=== PATIENT | male | born 1960 | race Caucasian/White ===

== ENCOUNTER 2017-07-09 14:47 | Emergency (ER) | payer BC ==
--- NOTE | 2017-07-09 15:41 | EDM.PDOC ---
ED HPI GENERAL MEDICAL PROBLEM - General Chief Complaint: Gastrointestinal Problem Stated Complaint: SENT FROM [facility] Time Seen by Provider: 07/09/17 15:02 Source of Information: Reports: Patient, RN Notes Reviewed - History of Present Illness INITIAL COMMENTS - FREE TEXT/NARRATIVE: 57-year-old male has been sent over from [facility] with concern for possible pneumonia. He presented to the clinic with cough, chills, possible low- grade fever that started yesterday. He apparently had a CBC, CMP, EKG. EKG showed slight sinus rhythm irregularity. Chemistries apparently showed a sodium of 130. He was felt to have an orthostatic blood pressure drop although numbers given show lying blood pressure 114/68, standing 99/73. Patient states he did not have a chest x-ray done at the clinic and also did not have an influenza screen. He did not get an influenza shot this year, does not believe in that. 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 He also does smoke. He states his cough has been non productive. Has slight nasal and sinus congestion. Denies sore throat. He is having no chest pain or difficulty breathing. He has been eating and drinking satisfactorily. - Related Data Allergies Allergy/AdvReac Type Severity Reaction Status Date / Time No Known Allergies Allergy Verified 07/09/17 15:00 Home Meds: Home Meds Doxycycline [Vibramycin] 100 mg PO Q12HR #20 tablet 07/09/17 [Rx] Past Medical History HEENT History: Reports: Impaired Vision Respiratory History: Reports: Pneumonia, Recurrent - Past Surgical History GI Surgical History: Reports: Hernia Repair/Other Musculoskeletal Surgical History: Reports: Other (See Below) Other Musculoskeletal Surgeries/Procedures:: Arm surgery Social & Family History - Family History Family Medical History: Noncontributory - Tobacco Use Smoking Status *Q: Current Every Day Smoker Years of Tobacco use: 30 Packs/Tins Daily: 0.7 - Recreational Drug Use Recreational Drug Use: No ED ROS GENERAL - Review of Systems Review Of Systems: See Below Constitutional: Reports: Fever, Chills (Possible low-grade) HEENT: Reports: Rhinitis (Slight). Denies: Sinus Problem, Throat Pain Respiratory: Denies: Shortness of Breath, Wheezing, Pleuritic Chest Pain Cardiovascular: Denies: Chest Pain GI/Abdominal: Denies: Abdominal Pain, Nausea, Vomiting Musculoskeletal: Reports: No Symptoms Skin: Reports: No Symptoms Neurological: Denies: Dizziness, Headache ED EXAM, GENERAL - Physical Exam Exam: See Below General Appearance: Alert, No Apparent Distress Throat/Mouth: Normal Inspection, Normal Oropharynx Head: Atraumatic. No: Facial Swelling Neck: Supple, Full Range of Motion Respiratory/Chest: No Respiratory Distress, Lungs Clear, Normal Breath Sounds. No: Rhonchi, Wheezing Cardiovascular: Regular Rate, Rhythm Extremities: Normal Inspection. No: Pedal Edema, Leg Pain Neurological: Alert, Oriented, No Motor/Sensory Deficits Skin Exam: Warm, Dry, Normal Color EKG INTERPRETATION EKG Date: 07/09/17 Rhythm: NSR Rate (Beats/Min): 91 [place]: RAD-Right [place] Deviation P-Wave: Present QRS: Normal ST-T: Normal Course - Vital Signs Last Recorded V/S: Last Vital Signs Temp 97.4 F 07/09/17 14:55 Pulse 95 07/09/17 14:55 Resp 20 07/09/17 14:55 BP 116/94 H 07/09/17 14:55 Pulse Ox 100 07/09/17 14:55 Orthostatic Blood Pressure [ 102/85 Standing] Orthostatic Blood Pressure [ 119/88 Sitting] Orthostatic Blood Pressure [ 127/80 Supine] - Orders/Labs/Meds Orders: Active Orders 24 hr Category Date Time Status EKG 12 Lead [EKG Documentation Completion] [RC] STAT Care 07/09/17 15:22 Active Peripheral IV Care [RC] . DIRECTED Care 07/09/17 15:56 Active CXR [Chest 2V] [CR] Stat Exams 07/09/17 15:22 Taken Peripheral IV Insertion Adult [OM.PC] Stat Oth 07/09/17 15:56 Ordered Meds: Medications Discontinued Medications Generic Name Dose Route Start Last Admin Trade Name Freq PRN Reason Stop Dose Admin Sodium Chloride 1,000 mls @ 999 mls/hr 07/09/17 16:00 07/09/17 16:02 Normal Saline IV 999 mls/hr ONETIME CODY Administration Sodium Chloride 10 ml 07/09/17 15:56 07/09/17 16:02 Saline Flush FLUSH 10 ml ASDIRECTED PRN Administration Keep Vein Open - Re-Assessments/Exams Free Text/Narrative Re-Assessment/Exam: 07/09/17 16:17 Patient did get somewhat dizzy and lightheaded standing over in radiology getting his chest x-ray. Orthosis were checked at that time or short time later and he did have somewhat of an orthostatic drop. Or give him a liter of normal saline. Chest x-ray looks clear, no evidence for pneumonia. Influenza screen negative. I have reviewed the CBC from the clinic, white blood count was 4700 relatively normal-looking differential. They did not send over his chemistries. I called over to check on that the clinic was then closed. He has a viral upper respiratory infection. We'll plan to give the full liter normal saline and it is expected he will be stable to go home at that time. 07/09/17 17:20. Feels much better, discharge instructions as documented Departure - Departure Time of Disposition: 17:21 Disposition: Home, Self-Care 01 Condition: Fair Clinical Impression: Bronchitis, Hyponatremia Upper respiratory infection Qualifiers: URI type: unspecified viral URI Qualified Code(s): J06.9 - Acute upper respiratory infection, unspecified - Discharge Information Prescriptions: Doxycycline [Vibramycin] 100 mg PO Q12HR #20 tablet Instructions: Hyponatremia, [id number], Acute Bronchitis, [id number], Upper Respiratory Infection, Adult, [id number] Referrals: PCP,None [Primary Care Provider] - Forms: ED Department Discharge Additional Instructions: Rest, drink plenty of fluids, Tylenol if needed for discomfort or high fever, doxycycline antibiotic 100 mg twice daily for 10 days, try stop smoking, your sodium was somewhat low at the clinic, it would be helpful to drink some Powerade in the neighborhood of one half bottle daily for the next few days and even to add a little bit of salt with your food, follow-up clinic if not much better within 4-5 days, return to ED if symptoms worsening in any way. - My Orders Last 24 Hours: My Active Orders 07/09/17 15:22 EKG 12 Lead [EKG Documentation Completion] [RC] STAT CXR [Chest 2V] [CR] Stat 07/09/17 15:56 Peripheral IV Care [RC] . DIRECTED Peripheral IV Insertion Adult [OM.PC] Stat - Assessment/Plan Last 24 Hours: My Active Orders 07/09/17 15:22 EKG 12 Lead [EKG Documentation Completion] [RC] STAT CXR [Chest 2V] [CR] Stat 07/09/17 15:56 Peripheral IV Care [RC] . DIRECTED Peripheral IV Insertion Adult [OM.PC] Stat
[2017-07-09] MEDS ORDERED: Sodium Chloride 0.9% 10 ML Syringe FLUSH PRN (15:56)
[2017-07-09] MEDS ORDERED: Sodium Chloride 0.9% 1,000 ML IV SCH (16:00)
--- NOTE | 2017-07-10 09:22 | CR ---
Chest: Two views of the chest were obtained. Comparison: No prior chest x-ray. Heart size is normal. Slightly prominent left-sided paratracheal soft tissues are noted. Lungs are clear but hyperinflated. Bony structures show slight degenerative change within the lower thoracic spine as well as mild scoliosis being seen within the spine. Impression: 1. Slightly prominent soft tissues within the left paratracheal region. Chest CT with contrast recommended to exclude the possibility of adenopathy. 2. Emphysematous change with other incidental findings. Diagnostic code #9
== END 2017-07-09 17:35 | disposition home or self-care (01) ==
LOC: JD.ED 14:47
DX: J40 Bronchitis, not specified as acute or chronic (principal); J06.9 Acute upper respiratory infection, unspecified; E87.1 Hypo-osmolality and hyponatremia; F17.210 Nicotine dependence, cigarettes, uncomplicated
CPT/HCPCS: 71020; 87804; 93005; 96360; 99284; J7040; J7050; 93010; 99283-25

== ENCOUNTER 2017-07-29 23:56 | Emergency (ER) | payer BC ==
[2017-07-30] MEDS: Sodium Chloride 0.9% 1,000 ML IV SCH ×2 (00:19→01:06)
[2017-07-30] MEDS ORDERED: Sodium Chloride 0.9% 1,000 ML ONE (00:21)
--- NOTE | 2017-07-30 01:00 | EDM.PDOC ---
ED HPI GENERAL MEDICAL PROBLEM - General Chief Complaint: Neuro Symptoms/Deficits Stated Complaint: SYNCOPE Time Seen by Provider: 07/30/17 00:00 Source of Information: Reports: Patient, Family History Limitations: Reports: No Limitations - History of Present Illness INITIAL COMMENTS - FREE TEXT/NARRATIVE: Is 57-year-old male. He was with family this evening when he apparently passed out and hit the floor. He is noted to have some abrasions to his forehead and his nose and his left cheek. The family member that came with him indicated that she had been walking towards the kitchen and away from him and not watching him and she heard a thud on the floor and turned around and he had passed out on the floor. They went to him and he was for a few seconds confused but then he started answering questions appropriately. She states that when they tried to get him up he was using his arms and legs appropriately did not have any facial drooping and he was answering questions appropriately. Due to his syncopal episode however they brought him to the ER for evaluation. The patient cannot tell me whether or not tried to stand up before he passed out or if he was sitting when he passed out. He doesn't really remember much about the syncopal episode. He does apparently drink alcohol daily and he tells the nurse for beers. The patient was here at the end of June for orthostatic vital signs requiring fluids and he was found to have an upper respiratory infection at that time. The patient denies any cough or congestion. He denies any chest pain. Head Pain Score (Numeric/FACES): 10 - Related Data Allergies Allergy/AdvReac Type Severity Reaction Status Date / Time No Known Allergies Allergy Verified 07/30/17 00:00 Home Meds: Home Meds . [No Known Home Meds] 07/30/17 [History] Past Medical History HEENT History: Reports: Impaired Vision Respiratory History: Reports: Pneumonia, Recurrent - Past Surgical History GI Surgical History: Reports: Hernia Repair/Other Musculoskeletal Surgical History: Reports: Other (See Below) Other Musculoskeletal Surgeries/Procedures:: Arm surgery Social & Family History - Family History Family Medical History: Noncontributory - Tobacco Use Smoking Status *Q: Current Every Day Smoker Years of Tobacco use: 40 Packs/Tins Daily: 0.5 - Alcohol Use Days Per Week of Alcohol Use: 7 Number of Drinks Per Day: 4 Total Drinks Per Week: 28 - Recreational Drug Use Recreational Drug Use: No ED ROS GENERAL - Review of Systems Review Of Systems: See Below Constitutional: Denies: Fever, Chills HEENT: Reports: Other (As per history of present illness) Respiratory: Denies: Shortness of Breath, Cough Cardiovascular: Reports: Lightheadedness. Denies: Chest Pain Endocrine: Reports: No Symptoms GI/Abdominal: Reports: No Symptoms : Reports: No Symptoms Musculoskeletal: Reports: No Symptoms Skin: Reports: Other (Abrasions to the face otherwise negative) Neurological: Reports: Syncope Psychiatric: Reports: No Symptoms Hematologic/Lymphatic: Reports: No Symptoms ED EXAM, NEURO - Physical Exam Exam: See Below Exam Limited By: No Limitations General Appearance: Alert, No Apparent Distress, Lethargic Eye Exam: Bilateral Eye: Normal Inspection Ears: Normal External Exam, Normal Canal, Normal TMs Nose: Other (He has no abrasion over the top of his nose noted) Throat/Mouth: Normal Inspection, Other (Mucous membranes are dry) Head Exam: Other (He has abrasions to his left forehead and left cheek noted) Neck: Supple, Other (He denies any cervical tenderness) Respiratory/Chest: No Respiratory Distress, Lungs Clear, Normal Breath Sounds Cardiovascular: Regular Rate, Rhythm, No Murmur GI/Abdominal: Soft, Non-Tender Neurological: Alert, Normal Mood/Affect Back Exam: Full Range of Motion Extremities: Normal Inspection, Normal Range of Motion Psychiatric: Flat Affect Skin Exam: Warm, Dry EKG INTERPRETATION EKG Date: 07/30/17 Time: 00:05 Rhythm: NSR EKG Interpretation Comments: There are no acute ST or T-wave changes noted, there is poor R-wave progression in the anterior leads but there is no ischemia changes noted. The interpretation suggested ST elevation in inferior leads but I disagree at this time. Course - Vital Signs Last Recorded V/S: Last Vital Signs Temp 94.9 F L 07/30/17 00:01 Pulse 67 07/30/17 00:01 Resp 23 H 07/30/17 00:01 BP 90/57 L 07/30/17 00:01 Pulse Ox Orthostatic Blood Pressure [ 124/78 Standing] Orthostatic Blood Pressure [ 146/89 Sitting] Orthostatic Blood Pressure [ 130/79 Supine] - Orders/Labs/Meds Orders: Active Orders 24 hr Category Date Time Status EKG 12 Lead [EKG Documentation Completion] [RC] STAT Care 07/30/17 00:17 Active Orthostatic Vital Signs [RC] ASDIRECTED Care 07/30/17 02:35 Active CXR [Chest 1V Frontal] [CR] Stat Exams 07/30/17 00:17 Taken Head wo Cont [CT] Stat Exams 07/30/17 00:27 Taken Sodium Chloride 0.9% [Normal Saline] 1,000 ml Med 07/30/17 00:30 Active IV ASDIRECTED Sodium Chloride 0.9% [Normal Saline] 1,000 ml Med 07/30/17 01:15 Active IV ASDIRECTED Medication Orders Sodium Chloride (Normal Saline) 1,000 mls @ 1,000 mls/hr IV ASDIRECTED CODY Last Admin: 07/30/17 01:06 Dose: 1,000 mls/hr Infusion: 07/30/17 01:06 Dose: 1,000 mls/hr Admin: 07/30/17 00:19 Dose: 1,000 mls/hr Sodium Chloride (Normal Saline) 1,000 mls @ 1,000 mls/hr IV ASDIRECTED CODY Last Admin: 07/30/17 02:32 Dose: 1,000 mls/hr Labs: Laboratory Tests 07/30/17 07/30/17 07/30/17 Range/Units 00:03 00:03 00:06 WBC 7.35 (4.23-9.07) K/mm3 RBC 4.49 L (4.63-6.08) M/mm3 Hgb 15.1 (13.7-17.5) gm/L Hct 42.8 (40.1-51.0) % MCV 95.3 H (79.0-92.2) fl MCH 33.6 H (25.7-32.2) pg MCHC 35.3 (32.2-35.5) g/dl RDW Std Deviation 45.2 H (35.1-43.9) fL Plt Count 304 (163-337) K/mm3 MPV 8.4 L (9.4-12.3) fl Neut % (Auto) 25.4 L (34.0-67.9) % Lymph % (Auto) 57.8 H (21.8-53.1) % Lander % (Auto) 12.5 H (5.3-12.2) % Eos % (Auto) 3.5 (0.8-7.0) Baso % (Auto) 0.5 (0.1-1.2) % Neut # (Auto) 1.86 (1.78-5.38) K/mm3 Lymph # (Auto) 4.25 H (1.32-3.57) K/mm3 Lander # (Auto) 0.92 H (0.30-0.82) K/mm3 Eos # (Auto) 0.26 (0.04-0.54) K/mm3 Baso # (Auto) 0.04 (0.01-0.08) K/mm3 Sodium 129 L (136-145) mEq/L Potassium 3.7 (3.5-5.1) mEq/L Chloride 94 L (98-107) mEq/L Carbon Dioxide 21 (21-32) mEq/L Anion Gap 17.7 H (5-15) BUN 8 (7-18) mg/dL Creatinine 1.1 (0.7-1.3) mg/dL Est Cr Clr Drug Dosing 62.54 mL/min Estimated GFR (MDRD) > 60 (>60) mL/min BUN/Creatinine Ratio 7.3 L (14-18) Glucose 93 (74-106) mg/dL POC Glucose 86 (70-105) mg/dL Lactic Acid (0.4-2.0) mmol/L Calcium 8.6 (8.5-10.1) mg/dL Total Bilirubin 0.4 (0.2-1.0) mg/dL AST 43 H (15-37) U/L ALT 30 (16-63) U/L Alkaline Phosphatase 80 (46-116) U/L Troponin I < 0.017 (0.00-0.056) ng/mL Total Protein 7.3 (6.4-8.2) g/dl Albumin 3.7 (3.4-5.0) g/dl Globulin 3.6 gm/dL Albumin/Globulin Ratio 1.0 (1-2) Lipase 180 (73-393) U/L Urine Color (Yellow) Urine Appearance (Clear) Urine pH (5.0-8.0) Ur Specific [place] (1.005-1.030) Urine Protein (Negative) Urine Glucose (UA) (Negative) Urine Ketones (Negative) Urine Occult Blood (Negative) Urine Nitrite (Negative) Urine Bilirubin (Negative) Urine Urobilinogen (0.2-1.0) Ur Leukocyte Esterase (Negative) Urine RBC (0-5) /hpf Urine WBC (0-5) /hpf Ur Epithelial Cells (0-5) /hpf Urine Bacteria (FEW) /hpf Hyaline Casts (0-5) /lpf Urine Mucus (FEW) /hpf Urine Opiates Screen (NEGATIVE) Ur Buprenorphine Scrn (NEGATIVE) Ur Oxycodone Screen (NEGATIVE) Urine Methadone Screen (NEGATIVE) Ur Propoxyphene Screen (NEGATIVE) Ur Barbiturates Screen (NEGATIVE) Ur Tricyclics Screen (NEGATIVE) Ur Phencyclidine Scrn (NEGATIVE) Ur Amphetamine Screen (NEGATIVE) U Methamphetamines Scrn (NEGATIVE) U Benzodiazepines Scrn (NEGATIVE) U Cocaine Metab Screen (NEGATIVE) U Marijuana (THC) Screen (NEGATIVE) Ethyl Alcohol 0.07 (0.00) gm% 07/30/17 07/30/17 07/30/17 Range/Units 00:34 03:03 03:03 WBC (4.23-9.07) K/mm3 RBC (4.63-6.08) M/mm3 Hgb (13.7-17.5) gm/L Hct (40.1-51.0) % MCV (79.0-92.2) fl MCH (25.7-32.2) pg MCHC (32.2-35.5) g/dl RDW Std Deviation (35.1-43.9) fL Plt Count (163-337) K/mm3 MPV (9.4-12.3) fl Neut % (Auto) (34.0-67.9) % Lymph % (Auto) (21.8-53.1) % Lander % (Auto) (5.3-12.2) % Eos % (Auto) (0.8-7.0) Baso % (Auto) (0.1-1.2) % Neut # (Auto) (1.78-5.38) K/mm3 Lymph # (Auto) (1.32-3.57) K/mm3 [place]ander # (Auto) (0.30-0.82) K/mm3 Eos # (Auto) (0.04-0.54) K/mm3 Baso # (Auto) (0.01-0.08) K/mm3 Sodium (136-145) mEq/L Potassium (3.5-5.1) mEq/L Chloride (98-107) mEq/L Carbon Dioxide (21-32) mEq/L Anion Gap (5-15) BUN (7-18) mg/dL Creatinine (0.7-1.3) mg/dL Est Cr Clr Drug Dosing mL/min Estimated GFR (MDRD) (>60) mL/min BUN/Creatinine Ratio (14-18) Glucose (74-106) mg/dL POC Glucose (70-105) mg/dL Lactic Acid 2.5 H (0.4-2.0) mmol/L Calcium (8.5-10.1) mg/dL Total Bilirubin (0.2-1.0) mg/dL AST (15-37) U/L ALT (16-63) U/L Alkaline Phosphatase (46-116) U/L Troponin I (0.00-0.056) ng/mL Total Protein (6.4-8.2) g/dl Albumin (3.4-5.0) g/dl Globulin gm/dL Albumin/Globulin Ratio (1-2) Lipase (73-393) U/L Urine Color Yellow (Yellow) Urine Appearance Clear (Clear) Urine pH 6.5 (5.0-8.0) Ur Specific [place] 1.015 (1.005-1.030) Urine Protein Negative (Negative) Urine Glucose (UA) Negative (Negative) Urine Ketones Negative (Negative) Urine Occult Blood Negative (Negative) Urine Nitrite Negative (Negative) Urine Bilirubin Negative (Negative) Urine Urobilinogen 0.2 (0.2-1.0) Ur Leukocyte Esterase Negative (Negative) Urine RBC 0-5 (0-5) /hpf Urine WBC 0-5 (0-5) /hpf Ur Epithelial Cells Not seen (0-5) /hpf Urine Bacteria Not seen (FEW) /hpf Hyaline Casts 0-5 (0-5) /lpf Urine Mucus Not seen (FEW) /hpf Urine Opiates Screen Negative (NEGATIVE) Ur Buprenorphine Scrn Negative (NEGATIVE) Ur Oxycodone Screen Negative (NEGATIVE) Urine Methadone Screen Negative (NEGATIVE) Ur Propoxyphene Screen Negative (NEGATIVE) Ur Barbiturates Screen Negative (NEGATIVE) Ur Tricyclics Screen Negative (NEGATIVE) Ur Phencyclidine Scrn Negative (NEGATIVE) Ur Amphetamine Screen Negative (NEGATIVE) U Methamphetamines Scrn Negative (NEGATIVE) U Benzodiazepines Scrn Negative (NEGATIVE) U Cocaine Metab Screen Negative (NEGATIVE) U Marijuana (THC) Screen Presumptive positive H (NEGATIVE) Ethyl Alcohol (0.00) gm% Meds: Medications Generic Name Dose Route Start Last Admin Trade Name Freq PRN Reason Stop Dose Admin Sodium Chloride 1,000 mls @ 1,000 mls/hr 07/30/17 00:30 07/30/17 01:06 Normal Saline IV 1,000 mls/hr ASDIRECTED CODY Administration Sodium Chloride 1,000 mls @ 1,000 mls/hr 07/30/17 01:15 07/30/17 02:32 Normal Saline IV 1,000 mls/hr ASDIRECTED CODY Administration Discontinued Medications Generic Name Dose Route Start Last Admin Trade Name Freq PRN Reason Stop Dose Admin Sodium Chloride Confirm 07/30/17 00:21 07/30/17 00:50 Normal Saline Administered 07/30/17 00:22 Not Given Dose 1,000 mls @ as directed .ROUTE .STK-MED ONE - Re-Assessments/Exams Free Text/Narrative Re-Assessment/Exam: 07/30/17 01:04 When we attempted to do orthostatic vital signs the patient's blood pressure while lying down was 90/76, when we sat him up it dropped down to 81/48 and then we stood him up he got rather woozy and couldn't stand up and we waited him back down his blood pressure dropped to 61/39. During this time he was not complaining of chest pain he was able to move all 4 extremities and there is no facial drooping. 07/30/17 01:22 Chest x-ray does not show any acute infiltrates. 07/30/17 01:29 CT scan does not show any acute findings. 07/30/17 02:19 I spoke to the patient as well as the family regarding the blood results and the sodium of 129. Also told him about the chest x-ray and CT scan. I talked to him about his blood pressure dropping so low in the ER we stood him up and he was rather surprised. He seems to be doing well now he is alert he is talking and states he is feeling much better. 07/30/17 03:06 After 2 L of fluids he is feeling much better we did repeat orthostatic vital signs. Lying down blood pressure 130/79 with a pulse of 81, sitting was 146/89 pulse of 87 standing was 124/78 pulse of 95. He did not experience any lightheadedness while standing. Due to his heart rate still elevating we'll give him another liter of fluids before we let him go. 07/30/17 03:39 I spoke to the family regarding the rest of the lab results. The patient is feeling much better and he wishes to go home. We are able to get 3 L and the patient before he left and his blood pressure was stable and he felt okay when he stood up. Departure - Departure Time of Disposition: 03:40 Disposition: Home, Self-Care 01 Condition: Fair Clinical Impression: Dehydration, Orthostatic hypotension, Hyponatremia, Alcohol ingestion Syncope Qualifiers: Syncope type: vasovagal syncope Qualified Code(s): R55 - Syncope and collapse Facial abrasion Qualifiers: Encounter type: initial encounter Qualified Code(s): S00.81XA - Abrasion of other part of head, initial encounter - Discharge Information Referrals: PCP,None [Primary Care Provider] - Forms: ED Department Discharge Additional Instructions: Over the weekend and rest and sleep as much as possible and drink lots of good fluids and water, use some triple antibiotic ointment on the abrasions to the face and just watch for infection, recheck with your family doctor this coming week, if there is worsening of your symptoms return to the ER - My Orders Last 24 Hours: My Active Orders 07/30/17 00:17 EKG 12 Lead [EKG Documentation Completion] [RC] STAT CXR [Chest 1V Frontal] [CR] Stat 07/30/17 00:27 Head wo Cont [CT] Stat 07/30/17 00:30 Sodium Chloride 0.9% [Normal Saline] 1,000 ml IV ASDIRECTED 07/30/17 01:15 Sodium Chloride 0.9% [Normal Saline] 1,000 ml IV ASDIRECTED 07/30/17 02:35 Orthostatic Vital Signs [RC] ASDIRECTED - Assessment/Plan Last 24 Hours: My Active Orders 07/30/17 00:17 EKG 12 Lead [EKG Documentation Completion] [RC] STAT CXR [Chest 1V Frontal] [CR] Stat 07/30/17 00:27 Head wo Cont [CT] Stat 07/30/17 00:30 Sodium Chloride 0.9% [Normal Saline] 1,000 ml IV ASDIRECTED 07/30/17 01:15 Sodium Chloride 0.9% [Normal Saline] 1,000 ml IV ASDIRECTED 07/30/17 02:35 Orthostatic Vital Signs [RC] ASDIRECTED
[2017-07-30] MEDS ORDERED: Sodium Chloride 0.9% 1,000 ML IV SCH (01:15)
--- NOTE | 2017-07-30 16:00 | CR ---
Chest: Portable view of the chest was obtained. Comparison: Prior chest x-ray of 07/09/17. Heart size is normal. Tortuous thoracic aorta is seen. Lungs are clear. Bony structures are grossly intact. Impression: 1. Nothing acute is identified on frontal chest x-ray. Diagnostic code #2
--- NOTE | 2017-07-30 16:00 | CT ---
Head CT Technique: Multiple axial sections through the brain were obtained. Intravenous contrast was not utilized. Comparison: No previous intracranial imaging. Findings: Ventricles along with basal cisterns and sulci over the convexities are mildly prominent. No abnormal parenchymal densities are seen. No evidence of intracranial hemorrhage. No midline shift or mass effect is seen. Bone window settings were reviewed which show no acute calvarial abnormality. Mucosal thickening is noted within the right maxillary sinus and within the ethmoid sinuses which is likely chronic. Impression: 1. No acute intracranial abnormality is identified. Other findings which are felt to be incidental as noted above. Diagnostic code #2 I agree with preliminary report issued by [facility] ([facility] preliminary report dictated on 07/30/17, 2:26 AM Central Time)
== END 2017-07-30 03:58 | disposition home or self-care (01) ==
LOC: JD.ED 23:56
DX: I95.1 Orthostatic hypotension (principal); S00.81XA Abrasion of other part of head, initial encounter; S00.31XA Abrasion of nose, initial encounter; T51.91XA Toxic effect of unspecified alcohol, accidental (unintentional), initial encounter; E87.1 Hypo-osmolality and hyponatremia; E86.0 Dehydration; F17.210 Nicotine dependence, cigarettes, uncomplicated; W01.198A Fall on same level from slipping, tripping and stumbling with subsequent striking against other object, initial encounter
CPT/HCPCS: 36415; 70450; 71045; 80053; 80306; 81001; 82962; 83605; 83690; 84484; 85025; 93005; 96360; 96361; 99285; G0480; J7040; 99283

== ENCOUNTER 2023-12-27 17:48 | Emergency (ER) | payer BC ==
[2023-12-28] MEDS: diphenhydrAMINE 12.5 MG, Alum Hydrox/Mag Hydrox/Simeth 30 ML, Lidocaine 2% 15 ML PO ONE (00:40)
== END 2023-12-28 00:50 | disposition home or self-care (01) ==
LOC: JD.ED 17:48
DX: R09.A2 Foreign body sensation, throat (principal)
CPT/HCPCS: 70360; 70360-26; 99282; 99283; A9270-GY

== ENCOUNTER 2024-01-01 12:15 | Emergency (ER) | payer BC ==
[2024-01-01 13:43] LABS: BASOPHILS PERCENT AUTO 0.4 % (0.0-1.0); EOSINOPHILS ABSOLUTE AUTO 0.1 K/mm3 (0.0-0.4); HEMATOCRIT 45.5 % (42.0-52.0); HEMOGLOBIN 16.6 gm/dl (14.0-18.0); IMMATURE GRAN ABSOLUTE AUTO 0.03 K/mm3 (0.00-0.05); IMMATURE GRAN PERCENT AUTO 0.5 % (0.0-0.4); LYMPHOCYTES ABSOLUTE AUTO 1.8 K/mm3 (1.0-4.8); LYMPHOCYTES PERCENT AUTO 31.4 % (24.0-44.0); MEAN CORPUSCULAR HEMOGLOBIN 35.2 pg (28.0-32.0); MEAN CORPUSCULAR HGB CONC 36.5 g/dl (32.0-36.0); MEAN CORPUSCULAR VOLUME 96.6 fl (83.0-99.0); MEAN PLATELET VOLUME 8.7 fl (9.4-12.4); MONOCYTES ABSOLUTE AUTO 0.7 K/mm3 (0.0-0.8); MONOCYTES PERCENT AUTO 12.9 % (0.0-8.0); NEUTROPHILS PERCENT AUTO 52.8 % (41.0-71.0); PLATELET COUNT,PLT 191 K/mm3 (150-400); RED BLOOD CELL COUNT 4.71 M/mm3 (4.52-5.90); WHITE BLOOD CELL COUNT,WBC 5.64 K/mm3 (3.9-11.3)
[2024-01-01 14:10] LABS: ALANINE AMINOTRANSFERASE,ALT 24 U/L (16-63); ALBUMIN 3.4 g/dl (3.4-5.0); ALKALINE PHOSPHATASE 84 U/L (46-116); ANION GAP 12.8 (5-15); ASPARTATE AMNIOTRANSFERASE,AST 34 U/L (15-37); BILIRUBIN TOTAL 0.7 mg/dL (0.2-1.0); BLOOD UREA NITROGEN,BUN 7 mg/dL (7-18); CARBON DIOXIDE,CO2 26 mEq/L (21-32); CHLORIDE,CL 96 mEq/L (98-107); EST CRCL DRUG DOSING (CG) 57.89 mL/min; ESTIMATED GFR 85 mL/min (>60); GLUCOSE RANDOM 95 mg/dL (70-99); POTASSIUM,K 4.8 mEq/L (3.5-5.1); PROTEIN TOTAL,TP 6.8 g/dl (6.4-8.2); SODIUM,NA 130 mEq/L (136-145)
[2024-01-01 14:16] LABS: TROPONIN I HIGH SENSITIVITY < 4 pg/mL (<=76)
== END 2024-01-01 15:48 | disposition home or self-care (01) ==
LOC: JD.ED 12:15
DX: R06.02 Shortness of breath (principal); R68.2 Dry mouth, unspecified
CPT/HCPCS: 36415; 80053; 84484; 85025; 93005; 93010; 99282; 99285